=== PATIENT | female | born 1975 | race Caucasian/White ===

== ENCOUNTER → 2022-10-21 | Outpatient (CLI) | payer OTHER ==
--- NOTE | 2022-10-22 20:23 | MM ---
Reason for Exam: Screening (asymptomatic). Patient History: Menarche at age 12. First Full-Term at age 26. Perimenopausal. Paternal grandmother had breast cancer, age 70. Paternal grandmother had ovarian cancer, age 40. Risk Values: Kiarra 5 year model risk: 0.8%. NCI Lifetime model risk: 9.4%. Tissue Density: There are scattered fibroglandular densities. Findings: Analyzed By CAD. There is no suspicious group of microcalcifications, significant masses, or other discrete abnormality in either breast. Overall Assessment: Negative, BI-RAD 1 Management: Screening Mammogram of both breasts in 1 year. . Patient should continue monthly self-breast exams. A clinical breast exam by your physician is recommended on an annual basis. This exam should not preclude additional follow-up of suspicious palpable abnormalities. Note on Kiarra scores and lifetime risk: 1. A Kiarra score greater than 3% is considered moderate risk. If this is the case, consider specialist referral to assess eligibility for a risk reducing agent. 2. If overall lifetime risk for the development of breast cancer is 20% or higher, the patient may qualify for future screening with alternating mammogram and breast MRI. Electronically signed and approved by: Lis Allen M.D. Radiologist
== END | disposition home or self-care (01) ==
LOC: RADMAMWWP 14:16
PROVIDERS: ATTEND Family Medicine
DX: Z12.31 Encounter for screening mammogram for malignant neoplasm of breast (principal)
CPT/HCPCS: 77063; 77067

== ENCOUNTER 2023-02-18 10:52 | Emergency (ER) | payer OTHER ==
--- NOTE | 2023-02-18 11:07 | ED ---
Abdominal Pain HPI - General Source: patient, RN notes reviewed Mode of arrival: ambulatory Limitations: no limitations <Terri Greenberg - Last Filed: 02/18/23 11:05> <Nely Mckeon - Last Filed: 02/18/23 15:42> - General Chief Complaint: Abdominal Pain Stated Complaint: Kidney stones Time Seen by Provider: 02/18/23 11:05 - History of Present Illness Initial Comments: Patient's 47-year-old male presenting to the ER with a chief complaint of right flank pain. Patient was sent in by PCP as she believes she has kidney stone. Patient denies increased frequency. Patient was recently treated with Bactrim and still has blood in her urine. Patient denies any fevers endorses mild chills. (Terri Greenberg) 47-year-old female presents emergency Department with right flank pain. States when on for the past week. She saw her primary care doctor who placed her on antibiotics after they completed a urine sample. Patient states she had chills at that time. She is placed on Bactrim and only has a few tablets left. She followed back in office today because she continues to have suprapubic pain, increased frequency of urination. At today's visit they did have blood in the sample. There are concerned the patient was having kidney stones and therefore sent her over for imaging. She admits to mild chills without fevers. Reports decreased stream. Suprapubic pain. Admits to chronic abnormal menstrual cycles and is scheduled to have an ablation. Denies concern for such transmitted infections. Denies diarrhea, constipation, black or bloody stools. Continues to have some right flank pain which is not reproducible. No history of kidney stones. No alleviating, precipitating or modifying factors (Nely Mckeon) - Related Data Allergies Allergy/AdvReac Type Severity Reaction Status Date / Time No Known Allergies Allergy Verified 02/18/23 10:58 Review of Systems ROS Other: All systems not noted in ROS Statement are negative. <Terri Greenberg - Last Filed: 02/18/23 11:05> ROS Other: All systems not noted in ROS Statement are negative. <Nely Mckeon - Last Filed: 02/18/23 15:42> ROS Statement: Those systems with pertinent positive or pertinent negative responses have been documented in the HPI. Past Medical History Past Medical History: Asthma, Hyperlipidemia History of Any Multi-Drug Resistant Organisms: None Reported Past Surgical History: Tubal Ligation Past Psychological History: No Psychological Hx Reported Smoking Status: Current every day smoker Past Alcohol Use History: None Reported Past Drug Use History: Marijuana <Terri Greenberg - Last Filed: 02/18/23 11:05> General Exam Limitations: no limitations <Terri Greenberg - Last Filed: 02/18/23 11:05> General appearance: alert, in no apparent distress Head exam: Present: atraumatic, normocephalic, normal inspection Eye exam: Present: normal appearance, PERRL, EOMI. Absent: scleral icterus, conjunctival injection, periorbital swelling ENT exam: Present: normal exam, mucous membranes moist Neck exam: Present: normal inspection. Absent: tenderness, meningismus, lymphadenopathy Respiratory exam: Present: normal lung sounds bilaterally. Absent: respiratory distress, wheezes, rales, rhonchi, stridor Cardiovascular Exam: Present: regular rate, normal rhythm, normal heart sounds. Absent: systolic murmur, diastolic murmur, rubs, gallop, clicks GI/Abdominal exam: Present: soft, normal bowel sounds. Absent: distended, tenderness, guarding, rebound, rigid Extremities exam: Present: normal inspection, full ROM, normal capillary refill. Absent: tenderness, pedal edema, joint swelling, calf tenderness Back exam: Present: normal inspection, CVA tenderness (R) Neurological exam: Present: alert, oriented X3, CN II-XII intact Psychiatric exam: Present: normal affect, normal mood Skin exam: Present: warm, dry, intact, normal color. Absent: rash <Nely Mckeon - Last Filed: 02/18/23 15:42> - General Exam Comments Initial Comments: Visual Physical Exam Vital signs reviewed General: Well-appearing, nontoxic, no acute distress. Head: Normocephalic, atraumatic Eyes: PERRLA, EOMI ENT: Airway patent Chest: Nonlabored breathing Skin: No visual rash, normal skin tone Neuro: Alert and oriented 3 Musculoskeletal: No gross abnormalities (Terri Greenberg) Course Vital Signs 02/18/23 10:55 Temperature 98.2 F Pulse Rate 94 Respiratory 20 Rate Blood Pressure 165/78 O2 Sat by Pulse 99 Oximetry Medical Decision Making <Terri Greenberg - Last Filed: 02/18/23 11:05> - Lab Data Result diagrams: 02/18/23 12:09 02/18/23 12:09 <MikeNely Prabhakar - Last Filed: 02/18/23 15:42> - Medical Decision Making I performed the quick note portion of the exam. Electronically signed by Terri Greenberg PA-C (Terri Greenberg) Was pt. sent in by a medical professional or institution ([facility], AUDIT INTERN, urgent care, hospital, or retirement...) When possible be specific @ -Patient sent in by her primary care Did you speak to anyone other than the patient for history (EMS, parent, family, police, friend...)? What history was obtained from this source @ -No Did you review nursing and triage notes (agree or disagree)? Why? @ -I reviewed and agree with nursing and triage notes Were old charts reviewed (outside hosp., previous admission, EMS record, old EKG, old radiological studies, urgent care reports/EKG's, retirement records)? Report findings @ -No old charts were reviewed Differential Diagnosis (chest pain, altered mental status, abdominal pain women, abdominal pain men, vaginal bleeding, weakness, fever, dyspnea, syncope, headache, dizziness, GI bleed, back pain, seizure, CVA, palpatations, mental health, musculoskeletal)? @ -Differential Abdominal Pain Women: Appendicitis, Cholecystitis, diverticulosis, ischemic bowel, pancreatitis, hepatitis, UTI, gastroenteritis, AAA, incarcerated hernia, bowel obstruction, constipation, inflammatory bowel, hepatitis, peptic ulcer disease, splenic infarction, perforated viscus, vulvitis, ovarian torsion, PID, kidney stone, placenta abruption, this is not meant to be an all-inclusive list EKG interpreted by me (3pts min.). @ -Not done X-rays interpreted by me (1pt min.). @ -None done CT interpreted by me (1pt min.). @ -Yes and demonstrates hepatic cyst U/S interpreted by me (1pt. min.). @ -None done What testing was considered but not performed or refused? (CT, X-rays, U/S, labs)? Why? @ -None What meds were considered but not given or refused? Why? @ -None Did you discuss the management of the patient with other professionals (professionals i.e. , PA, AUDIT INTERN, lab, RT, psych nurse, clinical social worker, band salvager, teacher, geospatial program management officer, assistant case manager)? Give summary @ -No Was smoking cessation discussed for >3mins.? @ -No Was critical care preformed (if so, how long)? @ -No Were there social determinants of health that impacted care today? How? (Homelessness, low income, unemployed, alcoholism, drug addiction, transportation, low edu. Level, literacy, decrease access to med. care, care home, rehab)? @ -No Was there de-escalation of care discussed even if they declined (Discuss DNR or withdrawal of care, Hospice)? DNR status @ -No What co-morbidities impacted this encounter? (DM, HTN, Smoking, COPD, CAD, Cancer, CVA, ARF, Chemo, Hep., AIDS, mental health diagnosis, sleep apnea, morbid obesity)? @ -None Was patient admitted / discharged? Hospital course, mention meds given and route, prescriptions, significant lab abnormalities, going to OR and other pertinent info. @ -Discharged. Upon arrival patient placed in the hallway 20. There are h istory of physical exam was performed. Laboratory studies were conducted. Urine sample is obtained. CT is performed which answers no kidney stones. Liver cyst and diverticulosis. Results are discussed with the patient. She is instructed to finish the last few tablets of her Bactrim. Follow up with urology for her symptoms and return for any new or worsening symptoms Undiagnosed new problem with uncertain prognosis? @ -yes Drug Therapy requiring intensive monitoring for toxicity (Heparin, Nitro, Insulin, Cardizem)? @ -No Were any procedures done? @ -No Diagnosis/symptom? @ -Acute right flank pain, acute dysuria, recent UTI Acute, or Chronic, or Acute on Chronic? @ -Acute Uncomplicated (without systemic symptoms) or Complicated (systemic symptoms)? @ -Complicated Side effects of treatment? @ -No Exacerbation, Progression, or Severe Exacerbation? @ -No Poses a threat to life or bodily function? How? (Chest pain, USA, NM, pneumonia, PE, COPD, DKA, ARF, appy, cholecystitis, CVA, Diverticulitis, Homicidal, Suicidal, threat to staff... and all critical care pts) @ -No (Nely Mckeon) - Lab Data Lab Results 02/18/23 02/18/23 02/18/23 Range/Units 12:09 12:09 12:09 WBC 6.8 (3.8-10.6) k/uL RBC 4.76 (3.80-5.40) m/uL Hgb 14.7 (11.4-16.0) gm/dL Hct 43.4 (34.0-46.0) % MCV 91.2 (80.0-100.0) fL MCH 30.8 (25.0-35.0) pg MCHC 33.8 (31.0-37.0) g/dL RDW 13.9 (11.5-15.5) % Plt Count 378 (150-450) k/uL MPV 7.1 Neutrophils % 63 % Lymphocytes % 28 % Monocytes % 5 % Eosinophils % 1 % Basophils % 0 % Neutrophils # 4.3 (1.3-7.7) k/uL Lymphocytes # 1.9 (1.0-4.8) k/uL Monocytes # 0.4 (0-1.0) k/uL Eosinophils # 0.1 (0-0.7) k/uL Basophils # 0.0 (0-0.2) k/uL Sodium 139 (137-145) mmol/L Potassium 4.2 (3.5-5.1) mmol/L Chloride 104 (98-107) mmol/L Carbon Dioxide 21 L (22-30) mmol/L Anion Gap 14 mmol/L BUN 9 (7-17) mg/dL Creatinine 0.48 L (0.52-1.04) mg/dL Est GFR (CKD-EPI)AfAm >90 (>60 ml/min/1.73 sqM) Est GFR (CKD-EPI)NonAf >90 (>60 ml/min/1.73 sqM) Glucose 98 (74-99) mg/dL Plasma Lactic Acid Mich (0.7-2.0) mmol/L Calcium 10.4 H (8.4-10.2) mg/dL Total Bilirubin 0.4 (0.2-1.3) mg/dL AST 26 (14-36) U/L ALT 22 (4-34) U/L Alkaline Phosphatase 55 (38-126) U/L Total Protein 7.9 (6.3-8.2) g/dL Albumin 4.9 (3.5-5.0) g/dL Amylase 71 (30-110) U/L Lipase 62 (23-300) U/L Urine Color Light Yellow Urine Appearance Clear (Clear) Urine pH 5.5 (5.0-8.0) Ur Specific Kyle 1.018 (1.001-1.035) Urine Protein Negative (Negative) Urine Glucose (UA) Negative (Negative) Urine Ketones Negative (Negative) Urine Blood Negative (Negative) Urine Nitrite Negative (Negative) Urine Bilirubin Negative (Negative) Urine Urobilinogen <2.0 (<2.0) mg/dL Ur Leukocyte Esterase Negative (Negative) 02/18/23 Range/Units 12:09 WBC (3.8-10.6) k/uL RBC (3.80-5.40) m/uL Hgb (11.4-16.0) gm/dL Hct (34.0-46.0) % MCV (80.0-100.0) fL MCH (25.0-35.0) pg MCHC (31.0-37.0) g/dL RDW (11.5-15.5) % Plt Count (150-450) k/uL MPV Neutrophils % % Lymphocytes % % Monocytes % % Eosinophils % % Basophils % % Neutrophils # (1.3-7.7) k/uL Lymphocytes # (1.0-4.8) k/uL Monocytes # (0-1.0) k/uL Eosinophils # (0-0.7) k/uL Basophils # (0-0.2) k/uL Sodium (137-145) mmol/L Potassium (3.5-5.1) mmol/L Chloride (98-107) mmol/L Carbon Dioxide (22-30) mmol/L Anion Gap mmol/L BUN (7-17) mg/dL Creatinine (0.52-1.04) mg/dL Est GFR (CKD-EPI)AfAm (>60 ml/min/1.73 sqM) Est GFR (CKD-EPI)NonAf (>60 ml/min/1.73 sqM) Glucose (74-99) mg/dL Plasma Lactic Acid Mich 0.8 (0.7-2.0) mmol/L Calcium (8.4-10.2) mg/dL Total Bilirubin (0.2-1.3) mg/dL AST (14-36) U/L ALT (4-34) U/L Alkaline Phosphatase (38-126) U/L Total Protein (6.3-8.2) g/dL Albumin (3.5-5.0) g/dL Amylase (30-110) U/L Lipase (23-300) U/L Urine Color Urine Appearance (Clear) Urine pH (5.0-8.0) Ur Specific Kyle (1.001-1.035) Urine Protein (Negative) Urine Glucose (UA) (Negative) Urine Ketones (Negative) Urine Blood (Negative) Urine Nitrite (Negative) Urine Bilirubin (Negative) Urine Urobilinogen (<2.0) mg/dL Ur Leukocyte Esterase (Negative) Disposition <Terri Greenberg - Last Filed: 02/18/23 11:05> Is patient prescribed a controlled substance at d/c from ED?: No Time of Disposition: 14:19 <Nely Mckeon - Last Filed: 02/18/23 15:42> Clinical Impression: Flank pain, Dysuria Disposition: HOME SELF-CARE Condition: Stable Instructions (If sedation given, give patient instructions): Dysuria (ED) Additional Instructions: Please follow up with the urologist for further management of your symptoms. Return for any new or worsening symptoms. Referrals: Kezia Wiggins MD [Primary Care Provider] - 1-2 days Jaime Castle MD [STAFF PHYSICIAN] - 1-2 days
[2023-02-18 11:17] VITALS: BP 165/78; PULSE 94; RESP 20; TEMP 98.2
--- NOTE | 2023-02-18 11:17 | CT ---
EXAMINATION: CT ABDOMEN AND PELVIS WITHOUT IV CONTRAST DATE OF EXAMINATION: 02/18/2023. COMPARISON: None available. INDICATION: Right flank pain. PROCEDURE: Axial CT of the abdomen and pelvis was performed with sagittal and coronal reformatted i mages without contrast enhancement. The exam is limited because some types of pathology may not be ad equately demonstrated due to lack of contrast enhancement. CT dose lowering techniques were used, to include: automated exposure control, adjustment for patient size, and/or use of iterative reconstruct ion. FINDINGS: LOWER CHEST : The visualized lung bases are clear. There are no pleural or pericardial effusions. ABDOMEN: Liver and Biliary system: There is a 1.4 cm cyst within the right lobe of the liver. The noncontrast appearance of the liver otherwise appears unremarkable. Adrenal glands: Normal. Kidneys and ureters: There are no renal stones or hydronephrosis. No ureteral stones are present.. Spleen: Normal. Pancreas: Normal. Gallbladder: Normal. Lymph nodes, Peritoneum and mesentery: There is no mesenteric or retroperitoneal lymphadenopathy. Gastrointestinal tract: There are no dilated loops of bowel or free intraperitoneal air. . The appe ndix is normal. There is mild descending colonic diverticulosis without evidence of diverticulitis. Aorta/IVC: No aortic aneurysm.. IVC normal. Abdominal wall: Normal. PELVIS: Fluid: There is no free fluid in the pelvis. Lymph Nodes: There is no pelvic or inguinal lymphadenopathy.. Urinary bladder: Normal. BONES: There are no osseous destructive lesions.. ADDITIONAL SIGNIFICANT FINDINGS: None. IMPRESSION: 1. No renal stones or hydronephrosis.. 2. No bowel obstruction or appendicitis. 3. Diverticulosis without evidence of diverticulitis.
[2023-02-18 12:24] LABS: Basophils % (A) 0 %; Eosinophils # (A) 0.1 k/uL (0-0.7); Eosinophils % (A) 1 %; HCT 43.4 % (34.0-46.0); HGB 14.7 gm/dL (11.4-16.0); Lymphocytes # (A) 1.9 k/uL (1.0-4.8); Lymphocytes % (A) 28 %; MCH 30.8 pg (25.0-35.0); MCHC 33.8 g/dL (31.0-37.0); MCV 91.2 fL (80.0-100.0); Mean Platelet Volume 7.1; Monocytes # (A) 0.4 k/uL (0-1.0); Monocytes % (A) 5 %; Neutrophils # (A) 4.3 k/uL (1.3-7.7); Neutrophils % (A) 63 %; Platelet Count 378 k/uL (150-450); RBC 4.76 m/uL (3.80-5.40); RDW 13.9 % (11.5-15.5); WBC 6.8 k/uL (3.8-10.6)
[2023-02-18 12:45] LABS: ALT 22 U/L (4-34); AST 26 U/L (14-36); African American GFR (CKD) >90 (>60 ml/min/1.73 sqM); Albumin 4.9 g/dL (3.5-5.0); Alkaline Phosphatase 55 U/L (38-126); Amylase 71 U/L (30-110); Anion Gap 14 mmol/L; Blood Urea Nitrogen 9 mg/dL (7-17); Calcium 10.4 mg/dL (8.4-10.2); Carbon Dioxide 21 mmol/L (22-30); Chloride 104 mmol/L (98-107); Glucose 98 mg/dL (74-99); Lipase 62 U/L (23-300); Non-African American GFR(CKD) >90 (>60 ml/min/1.73 sqM); Potassium 4.2 mmol/L (3.5-5.1); Sodium 139 mmol/L (137-145); Total Bilirubin 0.4 mg/dL (0.2-1.3); Total Protein 7.9 g/dL (6.3-8.2)
[2023-02-18 13:57] LABS: Appearance,Urine Clear (Clear); Bilirubin,Urine Negative (Negative); Blood,Urine Negative (Negative); Color,Urine Light Yellow; Glucose,Urine (UA) Negative (Negative); Ketones,Urine Negative (Negative); Leukocyte Esterase,Urine Negative (Negative); Nitrite,Urine Negative (Negative); PH, Urine 5.5 (5.0-8.0); Protein,Urine Negative (Negative); Specific Gravity,Urine 1.018 (1.001-1.035); Urobilinogen,Urine <2.0 mg/dL (<2.0)
== END 2023-02-18 14:31 | disposition home or self-care (01) ==
LOC: EC 10:52
DX: R30.0 Dysuria (principal); R10.9 Unspecified abdominal pain; J45.909 Unspecified asthma, uncomplicated; F12.90 Cannabis use, unspecified, uncomplicated; F17.200 Nicotine dependence, unspecified, uncomplicated
CPT/HCPCS: 36415; 74176; 80053; 81003; 82150; 83605; 83690; 85025; 99284

== ENCOUNTER 2023-03-02 07:02 | Day surgery (SDC) | payer OTHER ==
[2023-02-28 17:02] VITALS: BMI 22.0
[~2023-03-02 07:02] MED LIST: LACTATED RINGERS 1,000 ML IV SCH
[2023-03-02] MEDS ORDERED: LACTATED RINGERS 1,000 ML IV ONE (07:22)
--- NOTE | 2023-03-02 07:37 | P.GSHP ---
History of Present Illness H&P Date: 03/02/23 CHIEF COMPLAINT: Colon screen HISTORY OF PRESENT ILLNESS: The patient is a 47-year-old female who presents for colon screen. Lower endoscopy was offered for further evaluation and management. PAST MEDICAL HISTORY: Please see list. PAST SURGICAL HISTORY: Please see list. MEDICATIONS: Please see list. ALLERGIES: Please see list. SOCIAL HISTORY: No illicit drug use FAMILY HISTORY: No reports of Crohn disease or ulcerative colitis. REVIEW OF ORGAN SYSTEMS: CONSTITUTIONAL: No reports of fevers or chills. PHYSICAL EXAM: VITAL SIGNS: Stable GENERAL: Well-developed pleasant in no acute distress. HEENT: No scleral icterus. Extraocular movements grossly intact. Moist buccal mucosa. NECK: Supple without lymphadenopathy. CHEST: Unlabored respirations. Equal bilateral excursions. CARDIOVASCULAR: Regular rate and rhythm. Distal 2+ pulses. ABDOMEN: Soft, nontender, nondistended. MUSCULOSKELETAL: No clubbing, cyanosis, or edema. ASSESSMENT: 1. Colon screen. PLAN: 1. Recommend proceeding with a lower endoscopy Past Medical History Past Medical History: Hyperlipidemia Additional Past Medical History / Comment(s): SEASONAL ALLERGIES History of Any Multi-Drug Resistant Organisms: None Reported Past Surgical History: Tubal Ligation Past Anesthesia/Blood Transfusion Reactions: No Reported Reaction Smoking Status: Current every day smoker, Vaper - Past Family History Mother Family Medical History: Cancer Medications and Allergies Home Medications Medication Instructions Recorded Confirmed Type Rosuvastatin Calcium 5 mg PO HS 02/28/23 03/02/23 History Allergies Allergy/AdvReac Type Severity Reaction Status Date / Time Penicillins Allergy Anaphylaxis Verified 03/02/23 07:25 Surgical - Exam Vital Signs Temp Pulse Resp BP Pulse Ox 97.4 F L 62 16 155/73 98 03/02/23 07:30 03/02/23 07:30 03/02/23 07:30 03/02/23 07:30 03/02/23 07:30
[2023-03-02 07:38] VITALS: RESP 16; TEMP 97.4
[2023-03-02] MEDS ORDERED: LIDOCAINE 1% INJ 10MG/ML (20 ML MDV) ONE (08:10)
[2023-03-02] MEDS ORDERED: PROPOFOL 10 MG/ML 20 ML VIAL IV ONE (08:10)
--- NOTE | 2023-03-02 08:36 | P.PCN ---
Date of Procedure: 03/02/23 Description of Procedure: PREOPERATIVE DIAGNOSIS: Colonoscopy screening POSTOPERATIVE DIAGNOSIS: Tubular adenoma ascending colon Tubular adenoma descending colon Pandiverticulosis OPERATION: Colonoscopy to the ileocecal valve and appendiceal orifice, cecum Colonoscopy with hot snare polypectomy Colonoscopy with cold forceps biopsy SURGEON: Chelsie Pope MD. ANESTHESIA: MAC. INDICATIONS: The patient is an 47-year-old female who presents for first colonoscopy screening. Benefits and risks were described and informed consent was obtained. DESCRIPTION OF PROCEDURE: The patient had undergone Sutab prep. The patient had been brought into the operating room and laid in the left lateral decubitus position. After adequate intravenous sedation, the rectum was examined with 2% lidocaine jelly. No external hemorrhoids were encountered. The rectal tone was within normal limits. No lesions were palpated in the rectal vault. An Olympus colonoscope was advanced until the cecum, ileocecal valve and appendiceal orifice were clearly viewed. The prep was good. Skin diverticulosis was encountered. Colonic polyps were found and removed. No evidence of focal colitis was found. Retroflexion of the scope demonstrated grade 1 internal hemorrhoids without active bleeding or inflammation. The colon was desufflated. The patient had tolerated the procedure well. Withdrawal time was over 6 minutes. FINDINGS: Aronchick preparation quality scale 2 (1-5) Internal hemorrhoids, grade 1 No external hemorrhoids, grade 4. No arteriovenous malformations. Scattered diverticulosis Removal of 2 polyps: - Snare polypectomy descending colon, 6 mm tubulovillous adenoma - Cold forceps biopsy at ascending colon, 4 mm adenoma No focal colitis. RECOMMENDATIONS: Repeat colonoscopy for 3 years2025 Plan - Discharge Summary Discharge Rx Participant: No New Discharge Prescriptions: Continue Rosuvastatin Calcium 5 mg PO HS Discharge Medication List Rosuvastatin Calcium 5 mg PO HS 02/28/23 [History] Follow up Appointment(s)/Referral(s): Chelsie Pope MD [STAFF PHYSICIAN] - As Needed Patient Instructions/Handouts: Diverticulosis (ED), Colorectal Polyps (GEN), Diverticulosis Diet (GEN) Activity/Diet/Wound Care/Special Instructions: Repeat colonoscopy 3 years, 2025 Discharge Disposition: HOME SELF-CARE
[2023-03-02 09:21] VITALS: BP 144/70; PULSE 69
== END 2023-03-02 09:12 | disposition home or self-care (01) ==
LOC: ORWHC2ENDO 07:02
PROVIDERS: ATTEND Surgery Plastic and Reconstructive Surgery
DX: Z12.11 Encounter for screening for malignant neoplasm of colon (principal); D12.2 Benign neoplasm of ascending colon; D12.4 Benign neoplasm of descending colon; K64.0 First degree hemorrhoids; K57.30 Diverticulosis of large intestine without perforation or abscess without bleeding; E78.5 Hyperlipidemia, unspecified; F17.200 Nicotine dependence, unspecified, uncomplicated; Z79.899 Other long term (current) drug therapy; Z88.0 Allergy status to penicillin
CPT/HCPCS: 81025; 88305; 45380; 45385; J2001; J2704

== ENCOUNTER 2023-08-26 10:56 | Emergency (ER) | payer OTHER ==
--- NOTE | 2023-08-26 11:19 | ED ---
Abdominal Pain HPI - General Source: patient, RN notes reviewed Mode of arrival: ambulatory Limitations: no limitations <Terri Greenberg - Last Filed: 08/26/23 11:18> <Constantine Wolf - Last Filed: 08/26/23 15:06> - General Chief Complaint: Abdominal Pain Stated Complaint: Abd pain-sent by PCP Time Seen by Provider: 08/26/23 11:18 - History of Present Illness Initial Comments: Quick note: 47-year-old female presented to the ER with a chief complaint of right lower quadrant abdominal pain. She reports that been ongoing for the past 2 days. She reports decreased appetite, nausea and chills. Patient sent in by PCP. (Terri Greenberg) 47-year-old female presenting with lower abdominal pain. Patient has had symptoms for the past 2 days. Patient has had significant nausea and vomiting. 1 episode of diarrhea. Was sent in by primary care provider. She has had history of tubal ligation. No other abdominal surgery. (Constantine Wolf) - Related Data Home Medications Medication Instructions Recorded Confirmed Rosuvastatin Calcium 5 mg PO HS 02/28/23 08/26/23 Allergies Allergy/AdvReac Type Severity Reaction Status Date / Time Penicillins Allergy Anaphylaxis Verified 08/26/23 13:08 Review of Systems ROS Other: All systems not noted in ROS Statement are negative. <Terri Greenberg - Last Filed: 08/26/23 11:18> ROS Other: All systems not noted in ROS Statement are negative. <Constantine Wolf - Last Filed: 08/26/23 15:06> ROS Statement: Those systems with pertinent positive or pertinent negative responses have been documented in the HPI. Past Medical History Past Medical History: Asthma, Hyperlipidemia Additional Past Medical History / Comment(s): SEASONAL ALLERGIES History of Any Multi-Drug Resistant Organisms: None Reported Past Surgical History: Tubal Ligation Past Anesthesia/Blood Transfusion Reactions: No Reported Reaction Past Psychological History: No Psychological Hx Reported Smoking Status: Current every day smoker Past Alcohol Use History: None Reported Past Drug Use History: Marijuana - Past Family History Mother Family Medical History: Cancer <Terri Greenberg - Last Filed: 08/26/23 11:18> General Exam Limitations: no limitations <Terri Greenberg - Last Filed: 08/26/23 11:18> General appearance: alert, in no apparent distress Head exam: Present: atraumatic, normocephalic Eye exam: Present: normal appearance, PERRL ENT exam: Present: normal exam Respiratory exam: Present: normal lung sounds bilaterally. Absent: respiratory distress, wheezes Cardiovascular Exam: Present: regular rate, normal rhythm GI/Abdominal exam: Present: tenderness (rt Lower quadrant). Absent: distended, guarding Extremities exam: Present: normal inspection, normal capillary refill Neurological exam: Present: alert Psychiatric exam: Present: normal affect, normal mood Skin exam: Present: warm, dry, intact <Constantine Wolf - Last Filed: 08/26/23 15:06> - General Exam Comments Initial Comments: Visual Physical Exam Vital signs reviewed General: Well-appearing, nontoxic, no acute distress. Head: Normocephalic, atraumatic Eyes: PERRLA, EOMI ENT: Airway patent Chest: Nonlabored breathing Skin: No visual rash, normal skin tone Neuro: Alert and oriented 3 Musculoskeletal: No gross abnormalities (Terri Greenberg) Course <Constantine Wolf - Last Filed: 08/26/23 15:06> Vital Signs 08/26/23 08/26/23 10:57 12:30 Temperature 97.6 F 98.1 F Pulse Rate 101 H 76 Respiratory 20 18 Rate Blood Pressure 170/95 163/72 O2 Sat by Pulse 98 100 Oximetry - Reevaluation(s) Reevaluation #1: 08/26/23 15:06 Patient has a ride (Constantine Wolf) Medical Decision Making <Terri Greenberg - Last Filed: 08/26/23 11:18> - Lab Data Result diagrams: 08/26/23 11:07 08/26/23 11:07 <Constantine Wolf - Last Filed: 08/26/23 15:06> - Medical Decision Making I performed the quick note portion of this chart. Electronically signed by Phillip Greenberg PA-C (Terri Greenberg) Was pt. sent in by a medical professional or institution ([facility], [facility], urgent care, hospital, or jail...) When possible be specific @ -No Did you speak to anyone other than the patient for history (EMS, parent, family, police, friend...)? What history was obtained from this source @ -No Did you review nursing and triage notes (agree or disagree)? Why? @ -I reviewed and agree with nursing and triage notes Were old charts reviewed (outside hosp., previous admission, EMS record, old EKG, old radiological studies, urgent care reports/EKG's, jail records)? Report findings @ -No old charts were reviewed Differential Abdominal Pain Women: Appendicitis, Cholecystitis, diverticulosis, ischemic bowel, pancreatitis, he patitis, UTI, gastroenteritis, AAA, incarcerated hernia, bowel obstruction, constipation, inflammatory bowel, hepatitis, peptic ulcer disease, splenic infarction, perforated viscus, vulvitis, ovarian torsion, PID, kidney stone, placenta abruption, this is not meant to be an all-inclusive list EKG interpreted by me (3pts min.). @ -As above X-rays interpreted by me (1pt min.). @ -None done CT interpreted by me (1pt min.). @ -CT of the abdomen pelvis with contrast negative for appendicitis, possible enteritis U/S interpreted by me (1pt. min.). @ -None done What testing was considered but not performed or refused? (CT, X-rays, U/S, labs)? Why? @ -None What meds were considered but not given or refused? Why? @ -None Did you discuss the management of the patient with other professionals ( professionals i.e. , PA, [facility], lab, RT, psych nurse, licensed master social worker, gas technician, teacher, project officer, complex case manager)? Give summary @ -No Was smoking cessation discussed for >3mins.? @ -No Was critical care preformed (if so, how long)? @ -No Were there social determinants of health that impacted care today? How? (Homelessness, low income, unemployed, alcoholism, drug addiction, transportation, low edu. Level, literacy, decrease access to med. care, detention, rehab)? @ -No Was there de-escalation of care discussed even if they declined (Discuss DNR or withdrawal of care, Hospice)? DNR status @ -No What co-morbidities impacted this encounter? (DM, HTN, Smoking, COPD, CAD, Cancer, CVA, ARF, Chemo, Hep., AIDS, mental health diagnosis, sleep apnea, morbid obesity)? @ -None Was patient admitted / discharged? Hospital course, mention meds given and route, prescriptions, significant lab abnormalities, going to OR and other pertinent info. @ -[47-year-old female with lower abdominal pain. Patient has also had nausea vomiting and 1 episode of diarrhea. She has a leukocytosis at 14. Microscopic hematuria. CT is showing an enteritis without any other acute findings. Patient does feel better after symptomatic treatment. She will monitor symptoms closely and follow-up with her primary care provider. She will return to the emergency department with worsening or changing symptoms. Undiagnosed new problem with uncertain prognosis? @ -No Drug Therapy requiring intensive monitoring for toxicity (Heparin, Nitro, Insulin, Cardizem)? @ -No Were any procedures done? @ -No Diagnosis/symptom? @ -Abdominal pain Acute, or Chronic, or Acute on Chronic? @ -acute Uncomplicated (without systemic symptoms) or Complicated (systemic symptoms)? @ -Default Side effects of treatment? @ -No Exacerbation, Progression, or Severe Exacerbation? @ -No Poses a threat to life or bodily function? How? (Chest pain, USA, ID, pneumonia, PE, COPD, DKA, ARF, appy, cholecystitis, CVA, Diverticulitis, Homicidal, Suicidal, threat to staff... and all critical care pts) @ -No (Constantine Wolf) - Lab Data Lab Results 08/26/23 08/26/23 08/26/23 Range/Units 11:07 11:07 11:07 WBC 14.4 H (3.8-10.6) k/uL RBC 4.72 (3.80-5.40) m/uL Hgb 14.7 (11.4-16.0) gm/dL Hct 44.2 (34.0-46.0) % MCV 93.8 (80.0-100.0) fL MCH 31.1 (25.0-35.0) pg MCHC 33.1 (31.0-37.0) g/dL RDW 13.2 (11.5-15.5) % Plt Count 354 (150-450) k/uL MPV 8.0 Neutrophils % 85 % Lymphocytes % 9 % Monocytes % 5 % Eosinophils % 0 % Basophils % 0 % Neutrophils # 12.3 H (1.3-7.7) k/uL Lymphocytes # 1.2 (1.0-4.8) k/uL Monocytes # 0.8 (0-1.0) k/uL Eosinophils # 0.0 (0-0.7) k/uL Basophils # 0.0 (0-0.2) k/uL Sodium 138 (137-145) mmol/L Potassium 3.6 (3.5-5.1) mmol/L Chloride 105 (98-107) mmol/L Carbon Dioxide 26 (22-30) mmol/L Anion Gap 7 mmol/L BUN 10 (7-17) mg/dL Creatinine 0.40 L (0.52-1.04) mg/dL Est GFR (CKD-EPI)AfAm >90 (>60 ml/min/1.73 sqM) Est GFR (CKD-EPI)NonAf >90 (>60 ml/min/1.73 sqM) Glucose 104 H (74-99) mg/dL Calcium 10.1 (8.4-10.2) mg/dL Total Bilirubin 1.1 (0.2-1.3) mg/dL AST 18 (14-36) U/L ALT 12 (4-34) U/L Alkaline Phosphatase 75 (38-126) U/L Total Protein 7.3 (6.3-8.2) g/dL Albumin 4.6 (3.5-5.0) g/dL Urine Color Yellow Urine Appearance Cloudy H (Clear) Urine pH 6.5 (5.0-8.0) Ur Specific [place] 1.027 (1.001-1.035) Urine Protein 1+ H (Negative) Urine Glucose (UA) 1+ H (Negative) Urine Ketones 3+ H (Negative) Urine Blood Moderate H (Negative) Urine Nitrite Negative (Negative) Urine Bilirubin Negative (Negative) Urine Urobilinogen 4.0 (<2.0) mg/dL Ur Leukocyte Esterase Negative (Negative) Urine RBC 35 H (0-5) /hpf Urine WBC <1 (0-5) /hpf Ur Squamous Epith Cells 8 H (0-4) /hpf Urine Mucus Many H (None) /hpf Disposition <Terri Greenberg - Last Filed: 08/26/23 11:18> Is patient prescribed a controlled substance at d/c from ED?: No Time of Disposition: 15:05 <Constantine Wolf - Last Filed: 08/26/23 15:06> Clinical Impression: Abdominal pain Disposition: HOME SELF-CARE Condition: Fair Instructions (If sedation given, give patient instructions): Abdominal Pain (ED) Referrals: Kezia Wiggins MD [Primary Care Provider] - 1-2 days
[2023-08-26 11:49] LABS: ALT 12 U/L (4-34); AST 18 U/L (14-36); African American GFR (CKD) >90 (>60 ml/min/1.73 sqM); Albumin 4.6 g/dL (3.5-5.0); Alkaline Phosphatase 75 U/L (38-126); Anion Gap 7 mmol/L; Blood Urea Nitrogen 10 mg/dL (7-17); Calcium 10.1 mg/dL (8.4-10.2); Carbon Dioxide 26 mmol/L (22-30); Chloride 105 mmol/L (98-107); Glucose 104 mg/dL (74-99); Non-African American GFR(CKD) >90 (>60 ml/min/1.73 sqM); Potassium 3.6 mmol/L (3.5-5.1); Sodium 138 mmol/L (137-145); Total Bilirubin 1.1 mg/dL (0.2-1.3); Total Protein 7.3 g/dL (6.3-8.2)
[2023-08-26 12:12] LABS: Basophils % (A) 0 %; Eosinophils % (A) 0 %; HCT 44.2 % (34.0-46.0); HGB 14.7 gm/dL (11.4-16.0); Lymphocytes # (A) 1.2 k/uL (1.0-4.8); Lymphocytes % (A) 9 %; MCH 31.1 pg (25.0-35.0); MCHC 33.1 g/dL (31.0-37.0); MCV 93.8 fL (80.0-100.0); Monocytes # (A) 0.8 k/uL (0-1.0); Monocytes % (A) 5 %; Neutrophils # (A) 12.3 k/uL (1.3-7.7); Neutrophils % (A) 85 %; Platelet Count 354 k/uL (150-450); RBC 4.72 m/uL (3.80-5.40); RDW 13.2 % (11.5-15.5); WBC 14.4 k/uL (3.8-10.6)
[2023-08-26 12:20] LABS: Appearance,Urine Cloudy (Clear); Bilirubin,Urine Negative (Negative); Blood,Urine Moderate (Negative); Color,Urine Yellow; Glucose,Urine (UA) 1+ (Negative); Leukocyte Esterase,Urine Negative (Negative); Mucus,Urine Many /hpf; Nitrite,Urine Negative (Negative); PH, Urine 6.5 (5.0-8.0); Protein,Urine 1+ (Negative); RBC,Urine 35 /hpf (0-5); Specific Gravity,Urine 1.027 (1.001-1.035); Squamous Epithelial Cell,Urine 8 /hpf (0-4); WBC,Urine <1 /hpf (0-5)
[2023-08-26] MEDS: SODIUM CHLORIDE 0.9% 1,000 ML IV ONE (12:35)
[2023-08-26] MEDS: ONDANSETRON 4 MG/2 ML VIAL IVP STA (12:36)
[2023-08-26] MEDS: HYDROmorphone 0.5 MG/0.5 ML SYRINGE IVP STA ×2 (12:38→15:21)
[2023-08-26 12:40] LABS: Ketones,Urine 3+ (Negative)
--- NOTE | 2023-08-26 13:26 | CT ---
EXAMINATION TYPE: CT abdomen pelvis w con CT DLP: 575 mGycm, Automated exposure control for dose reduction was used. DATE OF EXAM: 08/26/2023 1:05 PM COMPARISON: CT abdomen pelvis most recent from CLINICAL INDICATION:Female, 47 years old with history of rt Lower quadrant pain; RLQ pain, nausea, vo miting x2 days TECHNIQUE: Axial CT abdomen pelvis w con;Sagittal and coronal reformats were created on a separate w orkstation. Contrast used:100 mL of Isovue 300 with IV Contrast, (none if empty) Oral contrast used: without Oral Contrast (none if empty) FINDINGS: LOWER CHEST: Unremarkable ABDOMEN LIVER: Unremarkable GALLBLADDER AND BILE DUCTS: Unremarkable. PANCREAS: Unremarkable. SPLEEN: Unremarkable. ADRENAL GLANDS: Unremarkable. KIDNEYS AND URETERS: No evidence of hydronephrosis or renal calculus. The ureters are unremarkable. PELVIS BLADDER: Unremarkable REPRODUCTIVE: Unremarkable. ABDOMEN & PELVIS STOMACH AND BOWEL: Stomach and duodenum are unremarkable. Diverticulosis descending colon. Normal desmond endix identified. No evidence of bowel obstruction. Nondilated fluid-filled loops of small bowel wit h possible mural thickening in the pelvis. Question focal, mild enteritis. PERITONEUM/RETROPERITONEUM: No evidence of pneumoperitoneum or free fluid. VASCULATURE: No evidence of aortic aneurysm. MUSCULOSKELETAL: No acute osseous abnormalities LYMPH NODES: No gross evidence for lymphadenopathy. SOFT TISSUE/ABDOMINAL WALL: Unremarkable IMPRESSION: 1. Normal appendix. 2.Nondilated fluid-filled loops of small bowel with possible mural thickening in the pelvis. Question focal, mild enteritis.
[2023-08-26 13:40] VITALS: RESP 18
[2023-08-26 15:21] VITALS: BP 124/76; PULSE 77; TEMP 98.4
== END 2023-08-26 15:30 | disposition home or self-care (01) ==
LOC: EC 10:56
DX: R10.31 Right lower quadrant pain (principal); F17.200 Nicotine dependence, unspecified, uncomplicated; F12.90 Cannabis use, unspecified, uncomplicated; Z88.0 Allergy status to penicillin
CPT/HCPCS: 36415; 80053; 85025; 81001; 74177; 99284; 96374; 96375; 96376; 96361 ×3; J2405; J1170; Q9967

== ENCOUNTER 2023-11-09 01:15 | Observation (INO) | payer OTHER ==
[~2023-11-09 01:15] MED LIST changes: +HYDROmorphone 1 MG/ML 1 ML SYRINGE ONE; -LACTATED RINGERS 1,000 ML IV SCH; +METOCLOPRAMIDE 5 MG/ML 2 ML VIAL ONE; +MORPHINE SULFATE 4 MG/ML SYRINGE ONE; +ONDANSETRON 4 MG/2 ML VIAL ONE; +SODIUM CHLORIDE 0.9% 1,000 ML BAG ONE; +diphenhydrAMINE 50 MG/ML 1 ML VIAL ONE
[2023-11-09] MEDS ORDERED: PIPERACILLIN-TAZOBACTAM 3.375 GM VIAL ONE (01:39)
[2023-11-09] MEDS ORDERED: HYDROmorphone 1 MG/ML 1 ML SYRINGE ONE ×3 (03:09→13:05)
[2023-11-09] MEDS ORDERED: ONDANSETRON 4 MG/2 ML VIAL ONE ×3 (03:10→18:11)
[2023-11-09] MEDS ORDERED: KETOROLAC 15 MG/ML 1 ML VIAL ONE ×2 (16:38→23:17)
[2023-11-09] MEDS ORDERED: miSOPROStoL 200 MCG TAB ONE (23:17)
[2023-11-09] MEDS ORDERED: METOCLOPRAMIDE 5 MG/ML 2 ML VIAL ONE (23:37)
[2023-11-10] MEDS ORDERED: ONDANSETRON 4 MG/2 ML VIAL ONE ×2 (03:40→10:37)
[2023-11-10] MEDS ORDERED: KETOROLAC 15 MG/ML 1 ML VIAL ONE ×2 (05:29→10:41)
[2023-11-10] MEDS ORDERED: DEXAMETHASONE SOD PHOSPHATE 4 MG/ML 1 ML VIAL ONE (10:37)
[2023-11-10] MEDS ORDERED: LACTATED RINGERS 1,000 ML BAG ONE (10:40)
[2023-11-10] MEDS ORDERED: LIDOCAINE 1% INJ 10MG/ML (20 ML MDV) ONE (10:40)
[2023-11-10] MEDS ORDERED: MIDAZOLAM 2 MG/2 ML VIAL ONE (10:41)
[2023-11-10] MEDS ORDERED: fentaNYL (PF) 50 MCG/ML 2 ML AMP ONE (10:41)
[2023-11-10] MEDS ORDERED: PROPOFOL 10 MG/ML 20 ML VIAL IV ONE (10:41)
[2023-11-10] MEDS ORDERED: IBUPROFEN 600 MG TAB PO ONE (23:11)
[2023-11-11] MEDS ORDERED: ACETAMINOPHEN TAB 500 MG TAB ONE (04:00)
[2023-11-11] MEDS ORDERED: CEFDINIR 300 MG CAP ONE (09:00)
[2023-11-11] MEDS ORDERED: NICOTINE 14MG/24HR PATCH TRANSDERM ONE (09:00)
[2023-11-11] MEDS ORDERED: oxyBUTYnin chloride 5 MG TAB ONE (09:00)
[2023-11-11] MEDS ORDERED: PANTOPRAZOLE 40 MG TABLET PO ONE (09:00)
[2023-11-11] MEDS ORDERED: ENOXAPARIN 40 MG/0.4 ML SYRINGE SQ ONE (09:00)
[2023-11-11] MEDS ORDERED: metFORMIN 500 MG TAB ONE (09:00)
[2023-11-11] MEDS ORDERED: IBUPROFEN 600 MG TAB PO ONE (10:49)
--- NOTE | 2023-12-07 11:04 | US ---
Patient: Elle Ramos Ordering Physician: Unknown, Unknown ID: [id number] Phone, Pager: Phone: N/A Pager: N/A : [phone] Age/Gender: 48Y, F Primary Location: N/A Procedure: US Transvaginal Tai dy Date: 11/08/2023 6:39:00 PM EXAMINATION TYPE: US transvaginal DATE OF EXAM: 11/08/2023 COMPARISON: CT 08/26/2023 CLINICAL INDICATION: PELVIC PAIN SINCE ENDO ABLATION IN MARCH. HX TUBAL LIGATION. TECHNIQUE: Transvaginal (TV) and Transabdominal (TA) . Transabdominal sonographic images of the pel vis were acquired. Transvaginal sonographic images were medically necessary to better assess the fol lowing anatomy: Findings: HISTORY: PELVIC PAIN SINCE ENDO ABLATION IN MARCH. HX TUBAL LIGATION. UTERUS: 10.4 X 4.8 X 6.2CM. THERE IS A 1.0 X 1.1 X 1.1CM HYPOECHOIC AREA SEEN WITHIN THE RIGHT PORTIO N OF THE UTERUS, POSSIBLE FIBROID VS OTHER. THERE IS ALSO A 1.9 X 1.7 X 2.1CM HETEROGENEOUS AREA SEEN THAT APPEARS TO BE CONNECTED TO THE LEFT SIDE OF THE UTERUS. ? PEDUNCULATED FIBROID VS OTHER. ENDOMETRIUM: PATIENT STATES ABLATION, AREA SEEN THAT IS ECHOGENIC AND MEASURING 2.6CM RIGHT OVARY: 2.2 X 1.7 X 1.7CM. APPEARS WNL BEST SEEN, DIFFICULT TO VISUALIZE LEFT OVARY: 3.4 X 1.8 X 2.9CM. APPEARS WNL BEST SEEN, DIFFICULT TO VISUALIZE. BLADDER SEEN ON TODAYS SCAN IMPRESSION: 1. Nonspecific lesion possibly representing post ablation changes measuring up to 26 mm. Further natanael luation with MRI pelvis is recommended with IV contrast for further evaluation. 2. The ovaries are within normal limits as visualized.
--- NOTE | 2023-12-15 14:45 | CONS ---
Date of service is 11/09/2023 CONSULTATION REASON FOR CONSULTATION: Leukocytosis. HISTORY OF PRESENT ILLNESS: The patient is a 48-year-old female, who presented to the hospital with lower abdominal pain. Apparently, the patient has been getting worse since July 2023 with previous history of uterine ablation in March 2023. The patient describes the pain to be mostly in the lower abdominal area, describing it to be sharp, moderate to severe in intensity without any radiation. The patient has felt nauseated and did have an episode of vomiting. Denies any diarrhea or constipation. With these symptoms, the patient has been evaluated. The patient did have a CT of abdomen and pelvis which shows right adnexal solid cystic area measuring approximately 5.1 x 3 cm and mild free fluid in the pelvis. She did have a pelvic ultrasound. In endometrium, there was an echogenic area measuring 2.6 cm, right. Bilateral ovaries were reported to be normal. The patient did have white count of 25,000. She was started on Levaquin. Infectious Disease was consulted for further management of antibiotic therapy. REVIEW OF SYSTEMS: Positive points have been mentioned in HPI. PAST MEDICAL HISTORY: Reviewed. PAST SURGICAL HISTORY: Reviewed. SOCIAL HISTORY: Reviewed. FAMILY HISTORY: Reviewed. ALLERGIES: To penicillin with history of anaphylaxis. Did not recall if she has taken any other related medications. MEDICATIONS: Currently include: 1. The patient is on Levaquin 750 mg daily. 2. She is on. a. Lovenox. b. Protonix. c. Nicotine patch. PHYSICAL EXAMINATION: VITAL SIGNS: Blood pressure 164/90, pulse of 86, temperature of 98, she is 99% on room air. GENERAL DESCRIPTION: This is a middle-aged female, lying in bed, in no distress. No tachypnea or accessory muscle of respiration use. HEENT: No pallor or scleral icterus. Oral mucous membranes moist. NECK: Trachea central. No thyromegaly. LUNGS: Unlabored breathing. Clear to auscultation anteriorly. No wheeze or crackle. HEART: S1, S2. Regular rate and rhythm. ABDOMEN: Soft. She is tender in the suprapubic area. No guarding or rigidity. EXTREMITIES: No edema in the feet. SKIN: No rash or mass palpable. NEUROLOGICAL: The patient awake, alert, and oriented x3. Mood and affect normal. LABORATORY DATA: CT and ultrasound report as mentioned above. The patient did have white count 25,000. Urine was cloudy with 2 white cells. DIAGNOSTIC IMPRESSION/PLAN: 1. The patient with elevated white count, source likely abdominal in this patient who did have suprapubic lower abdominal pain with evidence of or concern for possible endometritis, not entirely excluded. 2. Penicillin allergy that will limit the number of antibiotics if needed to be used. 3. Await possible D and C in the morning, at which time, deep culture should be obtained. 4. We will discontinue Levaquin. 5. We will start the patient on Rocephin 2 g daily and oral Flagyl while waiting for the workup to be completed. Thank you for this consultation. We will follow this patient along with you. MMODL / IJN: [id number] / PEMA
--- NOTE | 2023-12-16 14:43 | PN ---
PROGRESS NOTE LOCATION: Date of service is 11/11/2023 REASON FOR FOLLOWUP: Leukocytosis, likely endometritis. INTERVAL HISTORY: The patient is afebrile. The patient is breathing comfortably. Patient denies having any chest pain, shortness of breath, or cough. Abdominal pain has much improved. No nausea, no vomiting. No diarrhea. Feeling better. Wants to go home. PHYSICAL EXAMINATION: VITAL SIGNS: Blood pressure 147/83, pulse of 72, temperature 98.7. GENERAL DESCRIPTION: Middle-aged female, up in the room in no distress. RESPIRATORY SYSTEM: Unlabored breathing. Clear to auscultation anteriorly. HEART: S1, S2. Regular rate and rhythm. ABDOMEN: Soft. No tenderness. LABORATORY DATA: Creatinine 0.41. White count is down to 10.5. DIAGNOSTIC IMPRESSION AND PLAN: The patient with elevated white count, pelvic pain concerning for endometritis. Responded to Rocephin and Flagyl. Finishing therapy with oral Ceftin and Flagyl x10 days and close outpatient followup. Questions or concerns were answered. MMODL / IJN: [id number] / MTDD
--- NOTE | 2023-12-16 14:49 | PN ---
PROGRESS NOTE DATE OF SERVICE: 11/10/2023 LOCATION: [facility]. REASON FOR FOLLOWUP: Leukocytosis. INTERVAL HISTORY: The patient is afebrile. The patient is status post D and C this morning. The patient's pain is currently controlled. Denies any chest pain, shortness of breath, or cough. No vomiting. No abdominal pain. No diarrhea. PHYSICAL EXAMINATION: VITAL SIGNS: Her blood pressure 159/90 with a pulse of 73, temperature of 97. GENERAL DESCRIPTION: This is a middle-aged female, lying in bed, in no distress. RESPIRATORY SYSTEM: Unlabored breathing. Clear to auscultation anteriorly. HEART: S1, S2. Regular rate and rhythm. ABDOMEN: Soft, nontender. EXTREMITIES: No edema in the feet. LABORATORY DATA: Creatinine 0.14, white count down to 11.2. DIAGNOSTIC IMPRESSION AND PLAN: Patient with leukocytosis, question for possible endometritis. The patient is status post D and C, possible culture results will be followed. She responded to Rocephin to continue and monitor clinical course closely. Questions were answered. MMODL / IJN: [id number] /
--- NOTE | 2024-01-05 18:28 | CT ---
EXAM: CT Abdomen and Pelvis With Intravenous Contrast CLINICAL HISTORY: Lower abd pain since ablation in Mar 2023. TECHNIQUE: Axial computed tomography images of the abdomen and pelvis with intravenous contrast. CTDI is 12.4 mGy and DLP is 560 mGy-cm. This CT exam was performed using one or more of the following dose reduction techniques: automated exposure control, adjustment of the mA and/or kV according to patient size, and/or use of iterative reconstruction technique. COMPARISON: No relevant prior studies available. FINDINGS: Lung bases:Unremarkable. No mass. No consolidation. ABDOMEN: Liver:Unremarkable. No mass. Gallbladder and bile ducts:Unremarkable. No calcified stones. No ductal dilation. Pancreas:Unremarkable. No mass. No ductal dilation. Spleen:Unremarkable. No splenomegaly. Adrenals:Unremarkable. No mass. Kidneys and ureters:Unremarkable. No solid mass. No hydronephrosis. Stomach and bowel:Unremarkable. No obstruction. No mucosal thickening. PELVIS: Appendix:Normal appendix. Bladder:Unremarkable. No mass. Reproductive:Distended endometrial cavity, measures up to 2.5 cm. ABDOMEN and PELVIS: Intraperitoneal space:RIGHT adnexal solid/cystic area measures approximately5.1 x 3.0 cm. Mild free fluid in the pelvis. This should be evaluated with pelvic ultrasound. No free air. Bones/joints:No acute fracture. No dislocation. Soft tissues:Unremarkable. Vasculature:Unremarkable. No abdominal aortic aneurysm. Lymph nodes:Unremarkable. No enlarged lymph nodes. IMPRESSION: RIGHT adnexal solid/cystic area measures approximately5.1 x 3.0 cm. Mild free fluid in the pelvis. This should be evaluated with pelvic ultrasound. Radiologist: Venkata Swanson MD Electronically Signed: 11/09/23 00:11 Study first marked ready to read at 22:20, study last marked ready to read at 22:20, initial results transmitted at 00:[facility]
== END 2023-11-11 12:15 | disposition home or self-care (01) ==
LOC: 4FBP 01:15
PROVIDERS: ADMIT Internal Medicine; ATTEND Internal Medicine
DX: R10.2 Pelvic and perineal pain (principal); N85.7 Hematometra; D72.829 Elevated white blood cell count, unspecified; E78.5 Hyperlipidemia, unspecified; F17.200 Nicotine dependence, unspecified, uncomplicated; Z98.51 Tubal ligation status; Z79.899 Other long term (current) drug therapy; Z88.0 Allergy status to penicillin
CPT/HCPCS: 96376 ×2; 96372; 96374; 96375; 99285; 81025; 88304; 87040; 93975; 76830; 74177; 58120; G0378 ×3; S4990; J2250; J2270; J1200; J1100; J2765 ×2; J2405 ×3; J2001; J1650; S0191; J3010; J1170 ×2; J1885 ×2; J2704; Q9967

== ENCOUNTER → 2023-11-10 | Day surgery (SDC) | payer OTHER | LOC: OR 09:00 | PROVIDERS: ATTEND Obstetrics & Gynecology | DX: O02.1 Missed abortion (principal) | CPT/HCPCS: 81025 ==

== ENCOUNTER → 2023-11-22 | Outpatient (CLI) | payer OTHER ==
--- NOTE | 2023-11-22 12:55 | MM ---
Reason for Exam: Screening (asymptomatic). Last mammogram was performed 1 year(s) and 1 month(s) ago. Patient History: Menarche at age 12. First Full-Term at age 26. Perimenopausal. Paternal grandmother had breast cancer, age 70. Paternal grandmother had ovarian cancer, age 40. Risk Values: Kiarra 5 year model risk: 0.8%. NCI Lifetime model risk: 9.3%. Prior Study Comparison: 10/21/2022 Bilateral MG 3D screening mammo w/cad, [facility]. Tissue Density: The breasts are heterogeneously dense, which may obscure small masses. Findings: Analyzed By CAD. There is no suspicious group of microcalcifications or new suspicious mass in either breast. Table subcentimeter bilateral chronic nodularity. Overall Assessment: Benign, BI-RAD 2 Management: Screening Mammogram of both breasts in 1 year. . Patient should continue monthly self-breast exams. A clinical breast exam by your physician is recommended on an annual basis. This exam should not preclude additional follow-up of suspicious palpable abnormalities. Note on Kiarra scores and lifetime risk: 1. A Kiarra score greater than 3% is considered moderate risk. If this is the case, consider specialist referral to assess eligibility for a risk reducing agent. 2. If overall lifetime risk for the development of breast cancer is 20% or higher, the patient may qualify for future screening with alternating mammogram and breast MRI. Electronically signed and approved by: Danish Ferguson M.D. Radiologis
== END | disposition home or self-care (01) ==
LOC: RADMAMWWP 11:11
PROVIDERS: ATTEND Family Medicine
DX: Z12.31 Encounter for screening mammogram for malignant neoplasm of breast
CPT/HCPCS: 77067

== ENCOUNTER → 2024-01-09 | Outpatient (CLI) | payer OTHER ==
[2024-01-09 10:31] LABS: Appearance,Urine Clear (Clear); Bilirubin,Urine Negative (Negative); Blood,Urine Negative (Negative); Color,Urine Yellow (Yellow); Ketones,Urine Negative (Negative); Nitrite,Urine Negative (Negative); PH, Urine 6.5; Specific Gravity,Urine 1.018 (1.001-1.030); Urobilinogen,Urine 0.2 E.U./DL
[2024-01-09 10:43] LABS: Basophils # (A) 0.04 X 10*3/uL (0.00-0.10); Basophils % (A) 0.5 %; Eosinophils # (A) 0.13 X 10*3/uL (0.04-0.35); Eosinophils % (A) 1.7 %; HCT 39.6 % (37.2-46.3); HGB 13.5 g/dL (12.0-15.0); Lymphocytes # (A) 1.85 X 10*3/uL (0.90-5.00); MCH 32.5 pg (27.0-32.0); MCHC 34.1 g/dL (32.0-37.0); MCV 95.4 FL (80.0-97.0); Mean Platelet Volume 9.6 FL (9.5-12.2); Monocytes # (A) 0.73 X 10*3/uL (0.20-1.00); Monocytes % (A) 9.5 %; NRBC Per 100 WBC 0 X 10*3/uL (0.00-0.01); Neutrophils # (A) 4.95 X 10*3/uL (1.80-7.70); Platelet Count 349 X 10*3/uL (140-440); RBC 4.15 X 10*6/uL (4.10-5.20); RDW 12.4 % (11.5-14.5); WBC 7.72 X 10*3/uL (4.50-10.00)
[2024-01-09 11:32] LABS: Blood Urea Nitrogen 15.5 mg/dL (9.0-27.0); Chloride 104 mmol/L (96-109); Glucose 102 mg/dL (70-110); Potassium 4.2 mmol/L (3.5-5.5); Sodium 139 mmol/L (135-145)
== END | disposition home or self-care (01) ==
LOC: LABWHC1 07:15
PROVIDERS: ATTEND Obstetrics & Gynecology
DX: Z01.812 Encounter for preprocedural laboratory examination (principal)
CPT/HCPCS: 36415; 80051; 81003; 82565; 82947; 84520; 85025; 86850; 86900; 86901; 87086

== ENCOUNTER 2024-01-16 05:50 | Day surgery (SDC) | payer OTHER ==
[2024-01-06 10:32] VITALS: BMI 24.0
[2024-01-16] MEDS: LACTATED RINGERS 1,000 ML IV SCH ×2 (06:37→10:56)
[2024-01-16] MEDS: IV FLUID CONTINUATION 1,000 ML IV ONE (06:38)
[2024-01-16] MEDS: LIDOCAINE 1% (10MG/ML) FOR IV START INTRADERMA STA (06:38)
[2024-01-16] MEDS: ONDANSETRON 4 MG/2 ML VIAL IVP ONE (06:45)
[2024-01-16] MEDS: DEXAMETHASONE SOD PHOSPHATE 4 MG/ML 1 ML VIAL IV ONE (06:45)
[2024-01-16] MEDS: SCOPOLAMINE 1 MG/72 HR PATCH TRANSDERM ONE (06:53)
[2024-01-16] MEDS: FAMOTIDINE 20 MG/2 ML VIAL IV STA (06:54)
[2024-01-16] MEDS: MIDAZOLAM 2 MG/2 ML VIAL IV ONE (06:59)
[2024-01-16] MEDS ORDERED: HYDROmorphone 0.5 MG/0.5 ML SYRINGE IVP PRN (07:00)
--- NOTE | 2024-01-16 07:08 | P.ANPRN ---
Procedure Note - Anesthesia - Epidural/Spinal Spinal Time Out Performed: Yes Date of Procedure: 01/16/24 Procedure Start Time: 06:59 Procedure Stop Time: 07:04 Indication: Acute Post-Operative Pain, Analgesia, Requested by Surgeon Sedation Type: Sedate with meaningful contact maintained Preparation: Sterile Prep Position: Sitting Catheter: None Needle Guage: 25 Narrative: Intrathecal Duramorph 0.3mg. AttemptX1. Blood Aspirated: No Pain Paresthesia on Injection Noted: No Events: Uneventful and Well Tolerated
[2024-01-16] MEDS ORDERED: KETOROLAC 15 MG/ML 1 ML VIAL ONE (07:25)
[2024-01-16] MEDS ORDERED: PROPOFOL 10 MG/ML 20 ML VIAL IV ONE (07:25)
[2024-01-16] MEDS ORDERED: ROCURONIUM 10 MG/ML (5 ML VIAL) IV ONE (07:25)
[2024-01-16] MEDS ORDERED: NEOSTIGMINE 1 MG/ML 10 ML VIAL ONE (07:25)
[2024-01-16] MEDS ORDERED: KETAMINE HCL IN 0.9 % NACL 50 MG/5 ML SYRINGE ONE (07:25)
[2024-01-16] MEDS ORDERED: LIDOCAINE 1% INJ 10MG/ML (20 ML MDV) ONE (07:25)
[2024-01-16] MEDS ORDERED: MIDAZOLAM 2 MG/2 ML VIAL ONE (07:25)
[2024-01-16] MEDS ORDERED: GLYCOPYRROLATE 0.2 MG/ML 2 ML VIAL ONE (07:25)
[2024-01-16] MEDS ORDERED: HYDROmorphone (PF) 1 MG/ML ONE (07:25)
[2024-01-16] MEDS ORDERED: SUCCINYLCHOLINE CHLORIDE 200 MG/10 ML VIAL IV ONE (07:25)
[2024-01-16] MEDS ORDERED: fentaNYL (PF) 50 MCG/ML 2 ML AMP ONE (07:25)
[2024-01-16] MEDS ORDERED: LABETALOL 5 MG/ML VIAL MDV ONE (07:25)
[2024-01-16] MEDS: BUPIVACAINE (PF) 0.25% 30 ML VIAL SQ ONE ×2 (08:34→09:18)
[2024-01-16] MEDS: LACTATED RINGERS 1,000 ML IV ONE (08:59)
[2024-01-16] MEDS ORDERED: ONDANSETRON 4 MG/2 ML VIAL IVP PRN (09:30)
[2024-01-16] MEDS ORDERED: diphenhydrAMINE 25 MG CAP PO PRN (09:30)
[2024-01-16] MEDS ORDERED: SIMETHICONE 80 MG CHEWABLE PO PRN (09:30)
[2024-01-16] MEDS ORDERED: METOCLOPRAMIDE 5 MG/ML 2 ML VIAL IVP PRN (09:30)
--- NOTE | 2024-01-16 09:30 | P.OP ---
Date of Procedure: 01/16/24 Preoperative Diagnosis: #1. Chronic pelvic pain #2. Severe dysmenorrhea Postoperative Diagnosis: Same plus #3. Endometriosis with mild pelvic adhesive disease Procedure(s) Performed: #1. Da Coleen robotically assisted laparoscopic hysterectomy with bilateral salpingectomy #2. Adhesiolysis #3. Diagnostic cystoscopy Anesthesia: TRINA Surgeon: Alfredo James Infant Lead Teacher #1: Suki Wong Estimated Blood Loss (ml): 300 IV fluids (ml): 600 Urine output (ml): 100 Pathology: other (Uterus and bilateral fallopian tubes) Condition: stable Disposition: PACU Operative Findings: Intraoperatively, the patient was noted to have mild pelvic adhesions with the omentum being loosely attached to the bilateral ovarian areas and is loosely draped across the fundus of the uterus. The ovaries were retracted up against the uterus shortening the utero-ovarian pedicle and densely up against the round ligament on each side as well. There was a moderate amount of oozing from the entire pelvis for the entirety of the case though, at the end of the case, there was no ongoing bleeding from anything. The uterus was otherwise entirely normal to inspection. There was bilateral evidence of partial salpingectomy. Using the cystoscope at the end of the case, there was no evidence of any damage to the dome of the bladder either from the cystoscopic or laparoscopic perspective in the bilateral ureters were seen peristalsing. Description of Procedure: Was prepped and draped in usual fashion after general endotracheal anesthesia was administered by the anesthesiologist. A weighted speculum was placed and the anterior lip the cervix grasped with a single-tooth tenaculum. Serial dilation was carried out to admit a are uterine manipulator with a medium cup which was affixed in standard fashion. The Field catheter was then placed. Attention was then turned to the abdomen where a site was selected approximately 2 to 3 cm above the umbilicus in the midline where an 8 mm incision was made in the transverse plane along insertion of an 8 mm da Coleen optical port under direct visualization without difficulty. A pneumoperitoneum was established and 25 degrees of Trendelenburg was initiated. A site was selected approximately 12 cm lateral to the optical port and 4 cm inferior approximately even with the umbilicus in the right side where an 8 mm incision was made in the transverse plane along insertion of an 8 mm da Coleen port under direct visualization without difficulty. A matching port was placed in the left side. The distance between the left port and the optical port was bisected and the site selected approximately 3 to 4 cm above the optical port where 10 mm incision was made in the transverse plane along insertion of a 10 mm treasury assistant port under direct visu alization. The robot was then docked to the patient in the left arm loaded with a [place] bipolar cautery forceps while the right arm was loaded with a monopolar cautery scissors. I then presented to the console. The findings are as noted above with omentum loosely adherent to the bilateral adnexa. This was peeled off bluntly and sharply. After removing the omental adhesions, there was some ongoing generalized mild oozing from all the previous adhesive sites consistent with endometriotic changes. The fimbriated end of the left fallopian tube was then divided from its underlying tissues with the [place] and cautery scissors and then removed from the patient. The remainder of the fallopian tube was divided to the uterus at which time the utero-ovarian pedicle and round ligament were cauterized with the [place] and then cut with the monopolar cautery scissors. There was noted to be some abnormal location of blood vessels which was managed with cautery. Once through the round ligament and into the broad ligament, the bladder peritoneum was developed across the midline and swept somewhat distally. Initial cautery of the vascular pedicle was carried out with the [place]. Attention was turned to the right side where similar operations were carried out. The fimbriated portion of the fallopian tube was removed independently and then the fallopian tube again divided down to the uterus where the utero-ovarian and round ligament complexes were cauterized and cut. The uterine vasculature was then cauterized and cut. After both sides had been adequately managed in terms of the vascular pedicles, the vagina was packed with a sponge and the vaginal cuff opened sharply with the monopolar cautery scissors along the outline of the cervical cup. This is followed circumfe rentially until the uterus was divided from the patient. It was then removed through the vagina. There was some moderate ongoing bleeding from several sites along the vaginal cuff and primarily in the right vascular pedicle which was ultimately managed with cautery. The other bleeders were managed with cautery as well. The monopolar cautery scissors were replaced with a laparoscopic suturing device and a stitch of 0 Stratafix was passed into the abdomen. The stitch was then utilized to incorporate the area of bleeding at the right vascular pedicle and the cuff was closed in a running stitch from angle to angle. Hemostasis at the cuff appeared excellent. Thorough suction irrigation was then carried out as there was a moderate amount of blood and clot in the pelvis including what appeared to be endometriotic detritus that had been freed during dissection of the uterus. After suction irrigation, the entire cuff and vascular pedicles and all surgical sites appeared to be entirely dry. I then represented to the patient where the Field catheter had been removed. A diagnostic cystoscope was placed and the bladder filled with sterile water. The dome of the bladder was undamaged from both laparoscopic and cystoscopic perspective and the bilateral ureteral Helex were noted to be peristalsing. All instrumentation was then removed and the catheter replaced. The robot had been undocked and the ports removed. The skin incisions were closed with interrupted subcuticular stitches of 4-0 Vicryl followed by half-inch Steri-Strips placed with Mastisol. The 4 incisions were also infused with a total of 10 mL of half percent Marcaine without epinephrine equally divided among the 4 incisions. Estimated blood loss for the case was approximately 300 mL. There were no complications. All sponge, instrument, and needle counts were correct. The patient tolerated the procedure well and proceeded to the recovery room in stable condition.
[2024-01-16] MEDS: diphenhydrAMINE 50 MG/ML 1 ML VIAL IVP PRN (10:54)
[2024-01-16] MEDS: KETOROLAC 15 MG/ML 1 ML VIAL IVP PRN (17:57)
[2024-01-16] MEDS: ACETAMINOPHEN TAB 325 MG TAB PO PRN (20:54)
[2024-01-16] MEDS: SENNOSIDES-DOCUSATE SODIUM 1 EACH TAB PO SCH (20:55)
[2024-01-17] MEDS: IBUPROFEN 600 MG TAB PO PRN (00:51)
[2024-01-17 02:26] LABS: Basophils % (A) 0 %; Eosinophils % (A) 0 %; HCT 32.3 % (34.0-46.0); Lymphocytes % (A) 21 %; MCH 32.1 pg (25.0-35.0); MCHC 34.1 g/dL (31.0-37.0); MCV 94.2 fL (80.0-100.0); Mean Platelet Volume 7.8; Monocytes # (A) 0.6 k/uL (0-1.0); Monocytes % (A) 6 %; Neutrophils # (A) 6.8 k/uL (1.3-7.7); Neutrophils % (A) 71 %; Platelet Count 299 k/uL (150-450); RBC 3.43 m/uL (3.80-5.40); RDW 12.8 % (11.5-15.5); WBC 9.6 k/uL (3.8-10.6)
[2024-01-17 07:53] VITALS: BP 132/77; PULSE 64; RESP 14; TEMP 97.9
--- NOTE | 2024-01-17 08:48 | P.DS ---
Providers Expected date of discharge: 01/17/24 Attending physician: Alfredo James Primary care physician: Kezia Wiggins - Discharge Diagnosis(es) (1) Chronic pelvic pain in female Current Visit: Yes Status: Acute (2) Dysmenorrhea Current Visit: Yes Status: Acute (3) Endometriosis Current Visit: Yes Status: Acute Hospital Course: Patient is a 48-year-old 2 para 202 who presented to the office sometime ago with complaints of significant menorrhagia and dysmenorrhea. She was taken for Shanta endometrial ablation which relieved her bleeding but failed to relieve any of her discomfort and in fact had an increase in her pain which b ecame much more constant and significant. The initial thought was that she had developed hematometra and she was taken for D&C which failed to alleviate any of her discomfort. As a result, she was counseled and taken to the operating room for da Coleen robotically assisted laparoscopic hysterectomy with bilateral salpingectomy at which time she was discovered to have a fairly significant amount of endometriosis. The procedure was carried out in an uncomplicated fashion and her postoperative course was unremarkable with vital signs remaining stable and her temperature was afebrile throughout. She was deemed stable for discharge on postoperative day #1 was discharged to home to follow-up in the office in 2 weeks for incision checks and 8 weeks routinely. Discharge instructions included calling for any significantly increased bleeding, pain, fever, GI or complaints, incisional complaints, or anything else that concerned her. She was additionally and most importantly instructed to have nothing in the vagina for at least 8 weeks time to include intercourse. She understood her instructions and agrees to follow-up as noted above. Discharge medications included any normal home medications as well as [id number] analgesic pain medications. She was additionally provided with a prescription for Tylenol 3, 1-2 p.o. every 6 hours as needed pain, #20 dispensed with no refills. Discharge hemoglobin and hematocrit were 11.0 and 32.3 respectively. Procedures: 1. Da Coleen robotically assisted laparoscopic hysterectomy with bilateral salpingectomy #2. Diagnostic cystoscopy Patient Condition at Discharge: Stable Plan - Discharge Summary Discharge Rx Participant: No New Discharge Prescriptions: No Action Ondansetron Odt [Zofran ODT] 8 mg PO DIRECTED PRN PRN Reason: Nausea Rosuvastatin Calcium 5 mg PO HS Oxybutynin Chloride [oxyBUTYnin chloride ER] 10 mg PO DAILY Ibuprofen [Motrin] 800 mg PO Q8H Acetaminophen 1,000 mg PO TID PRN PRN Reason: Pain oxyCODONE HCL/ACETAMINOPHEN [oxyCODONE HCL/ACETAMINOPHEN 5-300] 1 tab PO DIRECTED PRN PRN Reason: Pain Discharge Medication List Rosuvastatin Calcium 5 mg PO HS 02/28/23 [History] Acetaminophen 1,000 mg PO TID PRN 01/06/24 [History] Ibuprofen [Motrin] 800 mg PO Q8H 01/06/24 [History] Ondansetron Odt [Zofran ODT] 8 mg PO DIRECTED PRN 01/06/24 [History] Oxybutynin Chloride [oxyBUTYnin chloride ER] 10 mg PO DAILY 01/06/24 [History] oxyCODONE HCL/ACETAMINOPHEN [oxyCODONE HCL/ACETAMINOPHEN 5-300] 1 tab PO DIRECTED PRN 01/06/24 [History] Follow up Appointment(s)/Referral(s): Alfredo James MD [STAFF PHYSICIAN] - 2 Weeks Patient Instructions/Handouts: *Surgery [facility] - Scopalamine Patch Instructions Discharge Disposition: HOME SELF-CARE
--- NOTE | 2024-01-17 12:27 | P.PN ---
Progress Note - Text Progress Note Date: 01/17/24 Postoperative day 1 status post robotic hysterectomy under general endotracheal anesthesia, and intrathecal morphine given for postoperative analgesia, patient doing well, there is no anesthesia related complications, Patient had no headache, vital signs stable , Assessment and plan= postop day 1 status robotic hysterectomy, doing well there is no anesthesia related complication.
== END 2024-01-17 09:18 | disposition home or self-care (01) ==
LOC: OR 05:50 → 4FBP 09:41 → OR 01-17 09:18
PROVIDERS: ATTEND Obstetrics & Gynecology
DX: D25.1 Intramural leiomyoma of uterus (principal); N80.203 Endometriosis of bilateral fallopian tubes, unspecified depth; N72 Inflammatory disease of cervix uteri; N83.8 Other noninflammatory disorders of ovary, fallopian tube and broad ligament; N73.6 Female pelvic peritoneal adhesions (postinfective); G89.18 Other acute postprocedural pain; F17.210 Nicotine dependence, cigarettes, uncomplicated; F17.290 Nicotine dependence, other tobacco product, uncomplicated; Z79.899 Other long term (current) drug therapy; Z88.0 Allergy status to penicillin
CPT/HCPCS: 58571; 62322; S2900; 81025; 85025; 88307

== ENCOUNTER 2024-08-26 17:04 | Emergency (ER) | payer OTHER ==
[2024-08-26 17:16] VITALS: RESP 18
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
[2024-08-26 19:09] VITALS: BP 159/100; PULSE 90; TEMP 98.1
== END 2024-08-26 19:09 | disposition home or self-care (01) ==
LOC: EC 17:04
DX: S06.0X0A Concussion without loss of consciousness, initial encounter (principal); S53.401A Unspecified sprain of right elbow, initial encounter; F17.200 Nicotine dependence, unspecified, uncomplicated; Z88.0 Allergy status to penicillin; R40.2410 Glasgow coma scale score 13-15, unspecified time; Y04.0XXA Assault by unarmed brawl or fight, initial encounter
CPT/HCPCS: 70450; 72125; 99284